=== PATIENT | female | born 1980 | race American Indian/Alaskan Native ===

== ENCOUNTER 2020-01-07 11:13 | Outpatient (CLI) | payer OTHER | END 2020-01-07 12:10 | disposition home or self-care (01) | LOC: NST 11:13 | DX: Z34.83 Encounter for supervision of other normal pregnancy, third trimester (principal) ==

== ENCOUNTER 2020-01-08 10:16 | Outpatient (CLI) | payer OTHER | END 2020-01-08 10:58 | disposition home or self-care (01) | LOC: NST 10:16 | DX: Z34.83 Encounter for supervision of other normal pregnancy, third trimester (principal) ==

== ENCOUNTER 2020-01-15 11:21 | Outpatient (CLI) | payer OTHER | END 2020-01-15 12:14 | disposition home or self-care (01) | LOC: NST 11:21 | DX: Z34.83 Encounter for supervision of other normal pregnancy, third trimester (principal) ==

== ENCOUNTER 2020-02-04 02:23 | Inpatient (IN) | payer OTHER ==
[~2020-02-04] VITALS: Ht 162.6 cm; Wt 73.5 kg
[2020-02-04] MEDS ORDERED: PRENATAL TABLE1 EAC1 PO (03:38)
[2020-02-04] MEDS ORDERED: NIFEDIPINE20 MG PO (03:38)
== END 2020-02-06 11:50 | disposition home or self-care (01) | DRG 807 ==
LOC: LDR 02:23 → OB/GYN 02:23
PROVIDERS: ADMIT Obstetrics & Gynecology Maternal & Fetal Medicine
PROC: 10E0XZZ Delivery of Products of Conception, External Approach (ICD-10-PCS; principal; 2020-02-04)
PROC: 4A1HXFZ Monitoring of Products of Conception, Cardiac Rhythm, External Approach (ICD-10-PCS; 2020-02-04)
PROC: 3E033VJ Introduction of Other Hormone into Peripheral Vein, Percutaneous Approach (ICD-10-PCS; 2020-02-04)
DX: O70.1 Second degree perineal laceration during delivery (principal); Z37.0 Single live birth; Z3A.37 37 weeks gestation of pregnancy